=== PATIENT | male | born 1940 | race Caucasian/White ===

== ENCOUNTER 2023-10-09 06:35 | Emergency (ER) | payer MEDICARE, OTHER, SELFPAY ==
[2023-10-09] VITALS (11 sets, daily range): BP systolic 125–141; BP diastolic 58–88; PULSE 58–73; RESP 17–20; TEMP 37; O2SAT 93–97; BMI 31.8
--- NOTE | 2023-10-09 07:11 | HMH.EDGENADL ---
Discharge Plan Disposition Patient Disposition: Home, Self-Care Condition: Good Prescriptions Prescriptions: New prednisone 50 mg tablet 50 mg PO DAILY 5 Days Qty: 5 0RF No Action atorvastatin 80 mg tablet 80 mg PO HS enalapril maleate 5 mg tablet 5 mg PO DAILY warfarin 5 mg tablet 5 mg PO DAILY albuterol sulfate 90 mcg/actuation HFA aerosol inhaler 2 puff INHALATION Q6HP PRN (Reason: SOA/Wheezing) Patient Comments: INHALE 2 PUFFS BY MOUTH EVERY 6 HOURS NEEDED levothyroxine [Synthroid] 112 mcg tablet 112 mcg PO DAILY Trelegy Ellipta 100-62.5-25 mcg blister with device 1 ea INHALATION DAILY Patient Comments: INHALE 1 PUFF BY MOUTH EVERY DAY Referrals Follow up/Referrals: Provider,Referral, MD [Primary Care Provider] - See instructions Activity Restrictions/Add. Instructions Additional Instructions/Restrictions: You were evaluated in the ER and are appropriate for discharge at this time. Make an appointment with your primary care physician for reevaluation in 2 to 3 days. Also follow-up with your arthritis doctor. Return to the ER with new, worsening, or otherwise concerning symptoms. Clinical Impressions Clinical Impression: Pseudogout, Acute pain of right knee Print Language Print Language: Armenian Discharge ED Provider: Giovani Cheng General Adult HPI General Chief complaint: Extremity Injury, Lower Stated complaint: Swelling R knee, history with swelling Time Seen by Provider: 10/09/23 07:00 Mode of Arrival: Wheelchair Source of Information: Patient Limitations: No Limitations Description of Symptoms (Recalled from ER Triage Doc. by RN): Patient reports his right knee has become swollen the last 2 days. Patient reports that he's had to have his knee tapped a few times in the past couple years. Patient reports pressure and pain /10, denies fevers, denies nausea/vomiting. History of Present Illness HPI narrative: 82-year-old male presents to the ER for right knee swelling over the last 3 days. Patient reports having to have fluid taken off a few times in the past but denies any history of having infection or requiring antibiotics for it. He denies any history of gout. Patient reports pressure and pain in the knee stating he is now barely able to stand on it. He does not usually require assistive devices for ambulation. Patient denies fevers, chills, injury, chest pain, shortness of breath, or other associated symptoms. He denies any recent injury or wound to the knee. Patient reports he is up from [place] visiting family and is supposed to be going back today, however his knee is limiting him to the point he is unable to drive. Related Data Home Medications ?Medication ?Instructions ?Recorded ?Confirmed albuterol sulfate 90 mcg/actuation 2 puff inhalation Q6HP PRN 10/09/23 10/09/23 aerosol inhaler SOA/Wheezing atorvastatin 80 mg tablet 80 mg PO HS 10/09/23 10/09/23 enalapril maleate 5 mg tablet 5 mg PO DAILY 10/09/23 10/09/23 fluticasone fur. 100 mcg-umeclid 1 ea inhalation DAILY 10/09/23 10/09/23 62.5 mcg-vilant 25 mcg inhalat.powder (Trelegy Ellipta) levothyroxine 112 mcg tablet 112 mcg PO DAILY 10/09/23 10/09/23 (Synthroid) warfarin 5 mg tablet 5 mg PO DAILY 10/09/23 10/09/23 Previous Rx's ?Medication ?Instructions ?Recorded prednisone 50 mg tablet 50 mg PO DAILY 5 days #5 tabs 10/09/23 Allergies Allergy/AdvReac Type Severity Reaction Status Date / Time No Known Allergies Allergy Verified 10/09/23 07:30 [facility] Disclaimer: The information contained in this section may have been updated after the patient was seen, as this information can be updated by other users. Medical History (Updated 10/09/23 @ 15:35 by Giovani Cheng MD) A-fib HLD (hyperlipidemia) Hypothyroid Social History Smoking Status: Former smoker alcohol intake: never current occupational status: other Travel in the last 8 weeks: None ROS Obtained: Yes All systems reviewed & no additional complaints except as documented Positive ROS as per HPI Physical Exam General General appearance: alert and in no apparent distress Head Head exam: atraumatic and normocephalic Eye Eye exam: Present PERRL and EOMI ENT ENT exam: Present mucous membranes moist Neck Neck exam: Present normal inspection and full ROM Chest Chest inspection: Present symmetric chest wall rise Respiratory Respiratory exam: Present normal lung sounds bilaterally; Absent respiratory distress, wheezes or stridor Cardiovascular Cardiovascular exam: Present regular rate and normal rhythm Abdominal Exam Abdominal exam: Present soft; Absent distention or tenderness Extremities Exam Extremities exam: Present tenderness (Lateral aspect right knee), normal capillary refill, joint swelling (Significantly large, swollen right knee with obvious effusion, no bruising or deformity, swelling isolated to the knee) and other (Slight erythema over the right lateral knee without induration or wound); Absent full ROM (Right knee stiff with flexion and extension secondary to swelling) or edema Neurological Exam Neurological exam: Present alert and oriented X3; Absent motor sensory deficit Psychiatric Psychiatric exam: Present normal affect and normal mood Skin Skin exam: Present warm and dry Medical Decision Making Stevie Inquiry Pt receiving controlled substance: No Vital Signs: 10/09/23 06:37 10/09/23 07:01 10/09/23 07:28 Temperature 98.6 F Temperature Source Oral Pulse Rate 66 73 Pulse Rate [Left Radial] 69 Respiratory Rate 17 Blood Pressure 131/65 130/74 Blood Pressure [Right Arm] 137/69 Blood Pressure Mean [Right Arm] 91 Blood Pressure Source [Right Arm] Automatic Cuff Blood Pressure Position [Right Arm] Sitting 02 Sat by Pulse Oximetry 93 L 94 L 95 Oxygen Delivery Method Room Air Room Air Room Air 10/09/23 08:00 10/09/23 09:00 10/09/23 10:00 Temperature Temperature Source Pulse Rate 70 68 64 Pulse Rate [Left Radial] Respiratory Rate Blood Pressure 137/70 141/72 H 129/58 L Blood Pressure [Right Arm] Blood Pressure Mean [Right Arm] Blood Pressure Source [Right Arm] Blood Pressure Position [Right Arm] 02 Sat by Pulse Oximetry 95 96 96 Oxygen Delivery Method Room Air 10/09/23 10:30 10/09/23 11:00 10/09/23 11:30 Temperature Temperature Source Pulse Rate 65 63 61 Pulse Rate [Left Radial] Respiratory Rate Blood Pressure 134/63 125/61 134/69 Blood Pressure [Right Arm] Blood Pressure Mean [Right Arm] Blood Pressure Source [Right Arm] Blood Pressure Position [Right Arm] 02 Sat by Pulse Oximetry 97 97 97 Oxygen Delivery Method Room Air 10/09/23 12:00 10/09/23 15:49 Temperature 98.6 F Temperature Source Oral Pulse Rate 58 L 62 Pulse Rate [Left Radial] Respiratory Rate 20 Blood Pressure 125/70 128/88 Blood Pressure [Right Arm] Blood Pressure Mean [Right Arm] Blood Pressure Source [Right Arm] Blood Pressure Position [Right Arm] 02 Sat by Pulse Oximetry 97 Oxygen Delivery Method Room Air Lab Data Lab Results 10/09/23 07:30: WBC 7.2, RBC 4.05 L, Hgb 12.6 L, Hct 39.4 L, MCV 97.4 H, MCH 31.1, MCHC 31.9, RDW 15.3, Plt Count 224, MPV 7.3 L, Neut % (Auto) 74.8, Lymph % (Auto) 9.4 L, [place] % (Auto) 14.7 H, Eos % (Auto) 0.6, Baso % (Auto) 0.5, Neut # (Auto) 5.4, Lymph # (Auto) 0.7, [place] # (Auto) 1.1 H, Eos # (Auto) 0.0, Baso # (Auto) 0.0, ESR 85 H, PT 32.2 H, INR 3.23 H, Sodium 137, Potassium 4.0, Chloride 102, Carbon Dioxide 29, Anion Gap 10.0, BUN 21 H, Creatinine 0.80, Estimated Creat Clear 89, Estimated GFR 93, Est GFR ( Amer) 113, Glucose 106 H, Calcium 9.0, Total Bilirubin 2.2 H, AST 27, ALT 17, Alkaline Phosphatase 72, C-Reactive Protein 117.1 H, Total Protein 7.6, Albumin 4.0, Globulin 3.6 H, Albumin/Globulin Ratio 1.1 10/09/23 08:30: Fluid Clarity Cloudy, Synovial Color Yellow, Synovial RBC 7000, Synovial Tot Nuc Cell 98707, Synovial Eosinophils% 0, Synovial Polynuclear % 97, Synovial Lymphocytes % 1, Synovial Macrophages % 2, Synovial Crystal ID Present, Synovial Fluid Comment See comment 10/09/23 07:30 10/09/23 07:30 Orders (Tests/Meds): ED MEDICATIONS Discontinued Medications Generic Name Dose Route Start Last Admin Trade Name Freq PRN Reason Stop Dose Admin Acetaminophen 1,000 mg 10/09/23 08:58 10/09/23 09:18 Acetaminophen 500mg Tab PO 10/09/23 08:59 1,000 mg ONCE ONE Administration ORDERS Category Date Time Status Knee XR right 3 views [XR knee RT 3V] Stat Exams 10/09/23 07:25 Completed CBC w/Auto Diff [Complete Blood Count Auto Diff] Stat Lab 10/09/23 07:30 Completed CMP [Comprehensive Metabolic Panel] Stat Lab 10/09/23 07:30 Completed CRP [C-Reactive Protein] Stat Lab 10/09/23 07:[address] Synovial w/ Crystals Stat Lab 10/09/23 08:30 Completed ESR [Erythrocyte Sedimentation Rate] Stat Lab 10/09/23 07:30 Completed PT INR [Prothrombin Time INR] Stat Lab 10/09/23 07:30 Completed Medical Decision Narrative: In summary, this 82-year-old male presents to the emergency department today with right knee swelling, stiffness. On initial evaluation patient is hemodynamically stable, afebrile, patient has significantly swollen right knee with limited flexion extension secondary to large swelling, no obvious sign of injury or wound. Patient is on warfarin for A-fib which increases risk of hemarthrosis as well as increases overall morbidity. Differential diagnosis includes but is not limited to hemarthrosis, gout, arthritic inflammation, septic joint, bony injury. I discussed this case with Dr. Morales. He states he is available if patient requires washout. We discussed that patient is on warfarin and he stated that if the INR is around or above 4.0, he tends to wait on performing the arthrocentesis as it dramatically increases the risk of iatrogenic hemarthrosis. Staff is available to take the synovial fluid to for testing. Based on these concerns, I ordered serum labs to assess inflammatory markers and evaluate INR, x-ray, synovial studies. Patient received acetaminophen for treatment. Labs personally reviewed demonstrate no leukocytosis, ESR and CRP are elevated, mild prerenal azotemia but patient is tolerating oral intake, hyperbilirubinemia but no transaminitis, INR elevated at 3.2, patient states his normal therapeutic range is 2-3. I discussed these lab findings with Dr. Morales who believes it is safe to proceed with arthrocentesis. I performed this procedure. See procedure note for details. XR personally interpreted demonstrates significant degenerative changes, no acute osseous abnormality. See radiology read for final interpretation. Patient was placed into ED observation at 0840 pending lab results that are being manually transported to . Awaiting these results will hopefully preclude unnecessary admission and rule out septic joint. Patient's arthrocentesis results became available. Patient's total nucleated cells 33,920, 7000 RBCs, absolute neutrophils 32,902, calcium pyrophosphate crystals detected. Given these findings, I consulted Dr. Morales by phone. We have discussed the results and stated that since the patient does not have an artificial joint and with the presence of calcium pyrophosphate crystals, this was pseudogout and could be treated with steroids outpatient. He recommended close outpatient follow-up for the patient. I discussed this with the patient who indicated that soon as he gets back to [place] he is able to see his physician who typically takes care of his knee. He is reassured by our workup so far and is appropriate for discharge. I prescribed prednisone burst. Patient was given instructions on symptomatic management, follow up instructions, and return precautions for the emergency department. Patient indicated understanding and was discharged in stable condition. Procedures Joint Aspiration/Injection Joint Asp./Inject. 1: Time Out Performed: Yes Side of body: right Joint Aspirated: knee Ultrasound Guidance: No Skin Prep: Chlorhexidine Local Anesthetic: lidocaine 1% Amount of anesthesia used (mL): 2 Needle Size Used: 20G Fluid Obtained: viscous (Adri-colored, not purulent but opaque) Total fluid obtained (mL): 70 Patient Tolerated Procedure: well Complications: none Additional Comments: Consent was provided by the patient and verbal and written forms after discussing risks and benefits. Patient was prepped and draped in sterile fashion. Procedure was performed sterilely. Successful joint aspiration on first attempt of entry into the joint space. Patient tolerated procedure well. Pressure was held after removal of the needle for multiple minutes to limit bleeding given patient does have elevated INR. Band-Aid applied over aspiration site. Patient already had improvement of discomfort. Synovial fluid sent for lab testing. Critical Care Critical Care Time Critical Care Time: No
--- NOTE | 2023-10-09 07:25 | XR_ITS ---
FINAL REPORT CLINICAL HISTORY: pain swelling. best images possible pt unable to straighten knee out due to amount of swelling. COMPARISON: None FINDINGS: Three views of the right knee reveal no evidence of fracture or dislocation. Severe degenerative change is present in the right knee. A large joint effusion is present. There is an amorphous suprapatellar calcification, that may represent a loose body or synovial calcification. Mild vascular calcifications are noted as well. IMPRESSION: Severe degenerative change with large joint effusion as described above. Reviewed, Interpreted and Dictated by Tomasz Ulrich III, MD Transcribed by Kristy Hickman Authenticated and [facility]
[2023-10-09 07:44] LABS: Basophils % 0.5 % (0.1-2.0); Eosinophils % 0.6 % (0.1-12.0); Hematocrit 39.4 % (42.0-52.0); Hemoglobin 12.6 g/dL (14.1-18.0); Lymphocytes # 0.7 K/mm3 (0.7-4.5); Lymphocytes % 9.4 % (10-50); Mean Corpuscular HGB Conc 31.9 g/dL (31.8-35.4); Mean Corpuscular Hemoglobin 31.1 pg (27.0-31.2); Mean Corpuscular Volume 97.4 fl (80-94); Mean Platelet Volume 7.3 fl (7.4-10.4); Monocytes # 1.1 K/mm3 (0.1-1.0); Monocytes % 14.7 % (1.7-9.3); Neutrophils # 5.4 K/mm3 (1.8-7.8); Neutrophils % 74.8 % (37.0-80.0); Platelet Count 224 K/mm3 (142-424); Red Blood Count 4.05 M/mm3 (4.60-6.20); Red Cell Distribution Width 15.3 % (11.5-17.5); White Blood Count 7.2 K/mm3 (4.8-10.8)
[2023-10-09 07:45] LABS: Alanine Aminotransferase 17 U/L (12-78); Albumin/Globulin Ratio 1.1 (1.1-1.8); Alkaline Phosphatase 72 U/L (38-126); Aspartate Amino Transferase 27 U/L (17-59); Bilirubin,Total 2.2 mg/dl (0.2-1.3); Blood Urea Nitrogen 21 mg/dl (9-20); Carbon Dioxide 29 mmol/L (22.0-30.0); Chloride 102 mmol/L (98-107); Creatinine Clearance Estimated 89 mL/min (50-200); Estimated Glomerular Filt Rate 93 ml/min (>60); GFR (African American) 113 ML/MIN (>60); Globulin 3.6 g/dL (1.3-3.2); Glucose 106 mg/dl (74-100); Sodium 137 mmol/L (136-145); Total Protein,Serum 7.6 g/dl (6.3-8.2)
[2023-10-09 07:46] LABS: INR 3.23 (0.9-1.1); Prothrombin Time 32.2 seconds (10.1-12.5)
[2023-10-09 07:50] LABS: C-Reactive Protein 117.1 mg/L (0-4)
--- NOTE | 2023-10-09 07:59 | PC.NURSE ---
DR CARTER SPEAKING WITH DR VILLAR
--- NOTE | 2023-10-09 08:22 | PC.NURSE ---
Dr. Cheng at bedside to obtain synovial fluid from R knee
[2023-10-09 08:24] LABS: Erythrocyte Sedimentation Rate 85 mm/hr (0-20)
--- NOTE | 2023-10-09 08:50 | PC.NURSE ---
SPECIMENS COLLECTED AND SENT TO LAB WITH ORDERS PER DR CARTER AT THIS TIME. FLUID GIVEN TO KAN IN LAB TO PROCESS FOR TRANSPORT TO . TESTING SHAKING SHIPPING NOTIFIED
[2023-10-09] MEDS: ACETAMINOPHEN 500MG TAB 1000 MG PO (09:18)
--- NOTE | 2023-10-09 12:10 | PC.NURSE ---
LUNCH TRAY PROVIDED
--- NOTE | 2023-10-09 14:01 | PC.NURSE ---
rounded on pt no needs at this time
--- NOTE | 2023-10-09 14:40 | PC.NURSE ---
DR AUREA PAULINO
[2023-10-09 16:17] LABS: Clarity,Fluid CLOUDY; Lymphocytes,Fluid 1; Nucleated cells, Syn. Fluid 33920; Polys,Fluid 97; RBC,Fluid 7000
[2023-10-09 16:18] LABS: Crystal,Synovial/Joint Fld. PRESENT; Eosinophils,Fluid 0; Macrophages,Fluid 2
[2023-10-09 16:19] LABS: Color,Fluid YELLOW
== END 2023-10-09 15:50 | disposition home or self-care (01) ==
PROVIDERS: Emergency Provider Emergency Medicine
DX: M10.061 Idiopathic gout, right knee (principal); M25.561 Pain in right knee; M25.461 Effusion, right knee; I48.0 Paroxysmal atrial fibrillation; E03.9 Hypothyroidism, unspecified; E78.5 Hyperlipidemia, unspecified; Z79.01 Long term (current) use of anticoagulants
CPT/HCPCS: 20610; 73562; 80053; 85025; 85610; 85651; 86140; 87070; 87205; 89051; 99283